=== PATIENT | female | born 1945 | race Caucasian/White ===

== ENCOUNTER 2019-02-20 05:53 | Day surgery (SDC) | payer MEDICARE ==
[2019-02-20] MEDS: Lactated Ringers 1,000 ML IV SCH (06:37)
[2019-02-20] MEDS ORDERED: DIPRIVAN 200 MG/20 ML IV ONE ×2 (07:27→07:48)
[2019-02-20] MEDS ORDERED: Ketamine HCl 50 MG/ML ONE (07:28)
[2019-02-20 08:46] VITALS: O2SAT 98
[2019-02-20 08:54] VITALS: BP 173/63; PULSE 73
--- NOTE | 2019-02-20 10:10 | OP ---
SURGERY DATE/TIME: 02/20/2019 0736 PREOPERATIVE DIAGNOSIS: Screening exam. POSTOPERATIVE DIAGNOSIS: Ascending colon polyp measuring approximately 1 cm in diameter that was sessile and sigmoid diverticulosis. PROCEDURE: Colonoscopy with a combination of hot biopsy forceps and cold snare. SURGEON: Dr. White. ANESTHESIA: MAC. Medications given by anesthesia department. HISTORY: The patient is a 73 year-old white female presenting now for her first screening colonoscopy. She was appraised of the risks of the procedure including the risk of perforation, phlebitis, untoward reaction to medication, bleeding and missed lesions. The patient verbalized her understanding and desired to have the procedure performed. DESCRIPTION OF PROCEDURE: The patient was given the medications by the anesthesia department. She had continuous pulse oximetry, ECG monitoring, intermittent blood pressure monitoring and tidal CO2 monitoring during the examination. She was placed in the left lateral decubitus position. A digital rectal examination was performed and revealed normal anal sphincter tone and no masses. The flexible Olympus pediatric colonoscope was used to intubate the rectum. A view of the colon was developed sequentially to the cecum. Upon insertion and withdrawal there was noted a polyp that is approximately 1 cm in diameter sessile in the ascending colon this is removed using a combination of hot biopsy forceps and then followed by cold snare. The polyp was retrieved for pathologic evaluation. Otherwise there was noted to be sigmoid diverticulosis but no other mucosal lesions being encountered. The scope was removed from the patient who tolerated the procedure well and was sent back to OP recovery in good condition. The prep was noted to be fair to good.
== END 2019-02-20 09:04 | disposition home or self-care (01) ==
LOC: SDC 05:53
PROVIDERS: ATTEND Family Medicine
DX: Z12.11 Encounter for screening for malignant neoplasm of colon (principal); K57.30 Diverticulosis of large intestine without perforation or abscess without bleeding; D12.2 Benign neoplasm of ascending colon
CPT/HCPCS: 99100; J2704